=== PATIENT | male | born 1975 | race Two or more races ===

== ENCOUNTER 2023-10-16 19:42 | Emergency (ER) | payer MEDICAID, OTHER ==
[~2023-10-16] VITALS: Ht 180.3 cm; Wt 99.6 kg
[2023-10-16 20:40] VITALS: BP 107/62; PULSE 82; RESP 18; TEMP 97.7; O2SAT 98
[2023-10-16] MEDS: SILVER SULFADIAZINE 1 % TOPICAL CREAM 50GM TOP ONE (21:21)
== END 2023-10-16 21:22 | disposition home or self-care (01) ==
LOC: ER 19:42
DX: L55.1 Sunburn of second degree (principal)